=== PATIENT | female | born 1950 | race Caucasian/White ===

== ENCOUNTER → 2017-04-19 | Outpatient (CLI) | payer BC ==
--- NOTE | 2017-04-20 07:42 | MAMMOGRAPHY REPORT ---
THIS REPORT HAS BEEN AMENDED. BILATERAL DIGITAL SCREENING MAMMOGRAM WITH CAD: 04/19/2017 CLINICAL HISTORY: Routine screening. Patient has no complaints. TECHNIQUE: Bilateral CC and MLO views with an additional right XCCL were obtained. Current study was also evaluated with a Computer Aided Detection (CAD) system. COMPARISON: 05/20/2006 digitized mammogram. BREAST COMPOSITION: The tissue of both breasts is heterogeneously dense, which may obscure small mas ses. FINDINGS: The parenchymal pattern is similar to the prior available 05/20/2006 mammogram. No new amada picious mass, architectural distortion or cluster of suspicious microcalcifications is seen. There i s a benign rim calcification in the left upper outer quadrant. IMPRESSION: ACR BI-RADS CATEGORY 1: NEGATIVE There is no mammographic evidence of malignancy. A 1 year screening mammogram is recommended. The pa tient will receive written notification of the results. Approximately 10% of breast cancers are not detected with mammography. A negative mammographic report should not delay biopsy if a clinically suggestive mass is present. Kim Arias M.D. ay/:04/19/2017 16:50:49 Production Inspector: Laila Wang RT(R)(M)(BD), [facility] letter sent: Normal / BI-RADS Code: ACR BI-RADS Category 1: Negative AMENDMENT: 04/21/2017 Kim Arias M.D. Prior outside mammograms from [facility] dated 12/16/2013, 12/19/2014 became available fo r review. The parenchymal pattern is stable comparing to the prior outside mammograms. There are st able asymmetries in the superior right breast and a stable benign rim calcification in the lateral le ft breast. No new suspicious mass, area of architectural distortion or suspicious microcalcification s are seen. Recommend routine screening mammography in one year. Amended BI-RADS: ACR BI-RADS Category 2: Benign letter sent: Normal /2
== END | disposition home or self-care (01) ==
LOC: C.MAMM 15:28
PROVIDERS: ATTEND Family Medicine
DX: Z12.31 Encounter for screening mammogram for malignant neoplasm of breast (principal)

== ENCOUNTER 2017-06-14 22:32 | Emergency (ER) | payer BC, OTHER ==
[~2017-06-14] VITALS: Ht 160 cm; Wt 57.4 kg
[2017-06-14 22:36] VITALS: Ht 160 cm; Wt 57.4 kg
[2017-06-14 23:13] LABS: BASO % 0.1 %; BASO ABS # 0.01 K/uL (0-0.2); HEMATOCRIT 43.6 % (37-47); HEMOGLOBIN 15.3 g/dL (12.0-16.0); IG# 0.01 K/uL (0.00-0.02); LYMPH % 6.9 %; LYMPH ABS # 0.52 K/uL (1.2-3.4); MEAN CORPUSCULAR HEMOGLOBIN 32.3 pg (25-34); MEAN CORPUSCULAR HGB CONC 35.1 g/dl (32-36); MEAN PLATELET VOLUME 11.9 fL (7.4-10.4); MONO % 5.6 %; MONO ABS # 0.42 K/uL (0.11-0.59); NEUT % 87.3 %; NEUT ABS # 6.59 K/uL (1.4-6.5); PLATELET COUNT 115 K/uL (130-400); RED CELL DISTRIBUTION WIDTH CV 12.6 % (11.5-14.5); RED CELL DISTRIBUTION WIDTH SD 42.8 fL (36.4-46.3); WHITE BLOOD COUNT 7.55 K/uL (4.8-10.8)
[2017-06-14 23:23] VITALS: TEMP 37.5
[2017-06-14 23:26] LABS: ALBUMIN 3.8 gm/dl (3.4-5.0); CALCIUM 9.4 mg/dl (8.5-10.1); CREATININE 1.13 mg/dl (0.60-1.20); POTASSIUM 3.4 mmol/L (3.5-5.1)
[2017-06-14] MEDS ORDERED: LISI-729 PO (23:32)
[2017-06-14] MEDS ORDERED: ATOR10TA82 PO (23:32)
[2017-06-14] MEDS ORDERED: MULT-506 PO (23:33)
[2017-06-14] MEDS ORDERED: CHOL1000 PO (23:33)
[2017-06-14] MEDS ORDERED: CALC600T PO (23:33)
[2017-06-14 23:35] LABS: TOTAL PROTEIN 7.6 gm/dl (6.4-8.2)
[2017-06-15] LABS: INFLUENZA B ANTIGEN Neg for Influ B (NEG)
[2017-06-15 00:46] VITALS: BP 117/61; PULSE 95; O2SAT 98
--- NOTE | 2017-06-15 04:27 | EMERGENCY ROOM VISIT NOTE ---
History Report prepared by Jeannie: Angle Murdock Under the Supervision of: Dr. Yuliana Medeiros D.O. First contact with patient: 23:08 Chief Complaint: VOMITING Stated Complaint: VOMITING,ABD PAIN ALL DAY Nursing Triage Summary: Pt complains of abdominal pain, vomiting and diarrhea since this morning. History of Present Illness The patient is a 66 year old female who presents to the Emergency Room with complaints of worsening vomiting starting this morning. The patient states that she woke up and didn't feel well. She states that she decided not to go to a meeting because of it. The patient states that she last vomited a half hour prior to arrival. She notes that she is unsure if she has had a fever. The patient complains of diarrhea and abdominal pain. She currently rates her pain as an 8/10 in severity. The patient denies nausea, hematochezia, chest pain, shortness of breath, and hematemesis. The patient notes that her was sick with similar symptoms a week ago. She notes a history of an appendectomy, mitral valve prolapse, and a carotid artery cleaning. She states that she takes 5 mg of Lisinopril. Source of History: patient Onset: this morning Position: other (global) Symptom Intensity: 8/10 Timing: worsening Associated Symptoms: + abdominal pain, + diarrhea, No chest pain, No SOB, No nausea, No hematochezia Note: The patient denies hematemesis. Review of Systems See HPI for pertinent positives & negatives. A total of 10 systems reviewed and were otherwise negative. Past Medical & Surgical Medical Problems: (1) Mitral valve prolapse Surgical Problems: (1) H/O endarterectomy (2) History of appendectomy Family History Heart disease Hypertension Social History Smoking Status: Never Smoker Smokeless Tobacco Use: No Alcohol Use: none Marital Status: Housing Status: lives with significant other Occupation Status: employed Current/Historical Medications Scheduled Atorvastatin (Lipitor), 10 MG PO DAILY Calcium Carbonate (Calcium 600), 600 MG PO DAILY Cholecalciferol (Vitamin D3), 1 TAB PO DAILY Lisinopril (Prinivil), 5 MG PO DAILY Multivitamin (Multivitamin), 1 TAB PO DAILY Allergies Coded Allergies: No Known Allergies (Unverified , 06/14/17) Physical Exam Vital Signs Date Time Temp Pulse Resp B/P (MAP) Pulse Ox O2 Delivery O2 Flow Rate FiO2 06/15/17 00:46 95 18 117/61 98 Room Air 06/14/17 23:23 37.5 06/14/17 22:36 36.7 111 20 110/56 96 Physical Exam HEENT: Head - normocephalic and atraumatic Pupils are equal, round, and reactive to light. Extraocular eye muscles are intact, and sclera are anicteric. Nose - moist nasal mucosa without discharge. Mouth - moist buccal mucosa. Oropharynx is nonerythematous and there is no tonsillar exudate or edema noted. Neck: Supple; no JVD, nuchal rigidity, cervical lymphadenopathy. Heart: Regular rate and rhythm. There is a normal S1 and S2 with no murmurs, clicks, or gallops appreciated. Lungs: Clear to auscultation bilaterally with no wheezes, rales, or rhonchi. Abdomen: Soft, completely nontender, nondistended, with good bowel sounds. There are no palpable pulsatile masses or hepatosplenomegaly. There is no guarding, rigidity, or rebound noted. Extremities: No evidence of cyanosis, clubbing, or edema. There are easily palpable peripheral pulses. Skin: hot to the touch. Dry with good turgor and no rashes. Medical Decision & Procedures Laboratory Results 06/14/17 22:54 Red Blood Count 4.74, Mean Corpuscular Volume 92.0, Mean Corpuscular Hemoglobin 32.3, Mean Corpuscular Hemoglobin Concent 35.1, Mean Platelet Volume 11.9, Neutrophils (%) (Auto) 87.3, Lymphocytes (%) (Auto) 6.9, Monocytes (%) (Auto) 5.6, Eosinophils (%) (Auto) 0.0, Basophils (%) (Auto) 0.1, Neutrophils # (Auto) 6.59, Lymphocytes # (Auto) 0.52, Monocytes # (Auto) 0.42, Eosinophils # (Auto) 0.00, Basophils # (Auto) 0.01 06/14/17 22:54 Test 06/14/17 22:54 06/14/17 23:26 06/15/17 00:00 White Blood Count 7.55 K/uL (4.8-10.8) Red Blood Count 4.74 M/uL (4.2-5.4) Hemoglobin 15.3 g/dL (12.0-16.0) Hematocrit 43.6 % (37-47) Mean Corpuscular Volume 92.0 fL (80-100) Mean Corpuscular Hemoglobin 32.3 pg (25-34) Mean Corpuscular Hemoglobin Concent 35.1 g/dl (32-36) Platelet Count 115 K/uL (130-400) Mean Platelet Volume 11.9 fL (7.4-10.4) Neutrophils (%) (Auto) 87.3 % Lymphocytes (%) (Auto) 6.9 % Monocytes (%) (Auto) 5.6 % Eosinophils (%) (Auto) 0.0 % Basophils (%) (Auto) 0.1 % Neutrophils # (Auto) 6.59 K/uL (1.4-6.5) Lymphocytes # (Auto) 0.52 K/uL (1.2-3.4) Monocytes # (Auto) 0.42 K/uL (0.11-0.59) Eosinophils # (Auto) 0.00 K/uL (0-0.5) Basophils # (Auto) 0.01 K/uL (0-0.2) RDW Standard Deviation 42.8 fL (36.4-46.3) RDW Coefficient of Variation 12.6 % (11.5-14.5) Immature Granulocyte % (Auto) 0.1 % Immature Granulocyte # (Auto) 0.01 K/uL (0.00-0.02) Anion Gap 6.0 mmol/L (3-11) Est Creatinine Clear Calc Drug Dose 40.5 ml/min Estimated GFR () 58.7 Estimated GFR (Non- 50.6 BUN/Creatinine Ratio 16.2 (10-20) Calcium Level 9.4 mg/dl (8.5-10.1) Total Bilirubin 1.3 mg/dl (0.2-1) Aspartate Amino Transf (AST/SGOT) 24 U/L (15-37) Alanine Aminotransferase (ALT/SGPT) 23 U/L (12-78) Alkaline Phosphatase 121 U/L (45-117) Total Protein 7.6 gm/dl (6.4-8.2) Albumin 3.8 gm/dl (3.4-5.0) Globulin 3.8 gm/dl (2.5-4.0) Albumin/Globulin Ratio 1.0 (0.9-2) Lipase 124 U/L (73-393) Influenza Type A Antigen Neg for Influ A (NEG) Influenza Type B Antigen Neg for Influ B (NEG) Urine Color DK YELLOW Urine Appearance CLEAR (CLEAR) Urine pH 6.0 (4.5-7.5) Urine Specific [place] 1.024 (1.000-1.030) Urine Protein NEG (NEG) Urine Glucose (UA) NEG (NEG) Urine Ketones NEG (NEG) Urine Occult Blood NEG (NEG) Urine Nitrite NEG (NEG) Urine Bilirubin NEG (NEG) Urine Urobilinogen NEG (NEG) Urine Leukocyte Esterase TRACE (NEG) Urine WBC (Auto) 1-5 /hpf (0-5) Urine RBC (Auto) 5-10 /hpf (0-4) Urine Hyaline Casts (Auto) 1-5 /lpf (0-5) Urine Epithelial Cells (Auto) 10-20 /lpf (0-5) Urine Bacteria (Auto) NEG (NEG) Laboratory results per my review. Procedure IV normal saline ED Course 2313: Past medical records reviewed. The patient was evaluated in room C1B. A complete history and physical exam was performed. An IV lock was initiated and labs are drawn as above. She was given 1 L of normal saline solution wide open. She was no longer complaining of nausea. 0001: I went to reevaluate the patient, but she was in the restroom. 0024: I reevaluated the patient and she is feeling better. She is going to try to drink some Raven Goldie. 0104: Upon reevaluation, the patient is feeling better. She drank all her Raven Goldie fine. She is going to eat some saltines. I discussed findings and results with her. She verbalized agreement of the treatment plan. The patient was discharged home. Medical Decision 66 year old female with vomiting and diarrhea. Differential diagnoses include dehydration, influenza, viral illness, gastroenteritis, cardiac ischemia. LABS: White count 7.5 Stable H&H Potassium 3.4 Glucose 124 Normal renal function Normal lipase Total bilirubin 1.3 [place] 121 Otherwise LFTs look normal Urine: looks contaminated, but no infection Negative influenza This is a 66-year-old female patient who presents to the emergency department with nausea, vomiting and diarrhea. Symptom onset was earlier today. She began to feel weak as she was unable to keep anything down. Upon arrival here in the emergency department, she had no further episodes of vomiting or diarrhea. She was able to drink clear liquids after receiving IV normal saline solution. She was able eat saltines without any further vomiting. Patient was encouraged to rest and take plenty of clear liquids and a bland diet. She will take foods high in potassium as her potassium level slightly low. Medication Reconcilliation Current Medication List: was personally reviewed by me Blood Pressure Screening Patient's blood pressure: Normal blood pressure Blood pressure disposition: Did not require urgent referral Impression Primary Impression: Vomiting Additional Impressions: Diarrhea Hypokalemia Scribe Attestation The scribe's documentation has been prepared under my direction and personally reviewed by me in its entirety. I confirm that the note above accurately reflects all work, treatment, procedures, and medical decision making performed by me. Departure Information Dispostion Home / Self-Care Referrals John Andersen M.D. (PCP) Forms HOME CARE DOCUMENTATION FORM, IMPORTANT VISIT INFORMATION Patient Instructions My [facility] Additional Instructions Rest. Take a bland diet and plenty of clear liquids Follow up with PCP for recheck today if vomiting continues Take foods high in potassium Problem Qualifiers Primary Impression: Vomiting Vomiting type: unspecified Vomiting Intractability: non-intractable Nausea presence: with nausea Qualified Codes: R11.2 - Nausea with vomiting, unspecified Additional Impressions: Diarrhea Diarrhea type: unspecified type Qualified Codes: R19.7 - Diarrhea, unspecified
== END 2017-06-15 01:14 | disposition home or self-care (01) ==
LOC: C.EDB 22:33 → C.EDC 06-15 01:14
DX: R11.2 Nausea with vomiting, unspecified (principal); R19.7 Diarrhea, unspecified; E87.6 Hypokalemia; I34.1 Nonrheumatic mitral (valve) prolapse; Z90.89 Acquired absence of other organs; Z98.890 Other specified postprocedural states; Z82.49 Family history of ischemic heart disease and other diseases of the circulatory system

== ENCOUNTER 2017-08-22 14:51 | Emergency (ER) | payer OTHER ==
[~2017-08-22] VITALS: Ht 160 cm; Wt 58.3 kg
[2017-08-22 14:52] VITALS: TEMP 37; Ht 160 cm; Wt 58.3 kg
[2017-08-22] MEDS ORDERED: GUAI1TAB55 PO (15:31)
--- NOTE | 2017-08-22 15:33 | DIAGNOSTIC IMAGING REPORT ---
CHEST 2 VIEWS ROUTINE HISTORY: 67 years-old Female cough and congestion acute cough and congestion COMPARISON: Chest radiographs 11/30/1999 and TECHNIQUE: PA and lateral views of the chest FINDINGS: Azygos lobe and fissure into densely noted. Cardiomediastinal and hilar silhouettes are within normal limits. Atherosclerosis of the aorta. Lungs are hyperinflated and hyperlucent suggesting emphysema with mild biapical pleural-parenchymal scarring. There is no pneumothorax, pleural effusion, focal airspace consolidation or overt pulmonary edema. Levoscoliosis of the upper thoracic spine redemonstrated. Degenerative changes of the shoulders and spine noted. Surgical clips project over the lower neck. IMPRESSION: No acute process. The above report was generated using voice recognition software. It may contain grammatical, syntax or spelling errors. Electronically signed by: Jose Elias West M.D. 08/22/2017 3:32 PM Dictated Date/Time: 08/22/2017 3:29 PM
--- NOTE | 2017-08-22 15:39 | EMERGENCY ROOM VISIT NOTE ---
History First contact with patient: 15:00 Chief Complaint: THROAT PAIN/INJURY Stated Complaint: THROAT EAR PAIN History of Present Illness The patient is a 67 year old female who presents to the Emergency Room via private vehicle with complaints of "throat/ear pain" the patient states that 4- 5 days ago she began with sneezing, and nose drainage down into the throat. She now notes a sore throat as well as cough which began 3 days ago. It is not productive, rather just a dry cough. She notes that she generally is feeling ill. She denies any chest pain, shortness of breath or fevers. She thought that she be feeling better by this time and decided to be evaluated. She has tried a decongestant with minimal relief. She rates her overall discomfort as a 6/10 and notes that the sore throat is worse with talking. Review of Systems A complete 6-point Review of Systems was discussed with the patient, with pertinent positives and negatives listed in the History of Present Illness. All remaining Review of Systems questions can be considered negative unless otherwise specified. Past Medical/Surgical History Medical Problems: (1) Mitral valve prolapse Surgical Problems: (1) H/O endarterectomy (2) History of appendectomy Family History Heart disease Hypertension Social History Smoking Status: Never Smoker Alcohol Use: none Marital Status: Housing Status: lives with significant other Occupation Status: employed Current/Historical Medications Scheduled Atorvastatin (Lipitor), 10 MG PO DAILY Azithromycin (Zithromax), 250 MG PO DAILY Calcium Carbonate (Calcium 600), 600 MG PO DAILY Cholecalciferol (Vitamin D3), 1 TAB PO DAILY Lisinopril (Prinivil), 5 MG PO DAILY Multivitamin (Multivitamin), 1 TAB PO DAILY Scheduled PRN Benzonatate (Tessalon Perles), 100 MG PO Q8 PRN for Cough Guaifenesin Ext Rel (Mucinex Ext Rel), 600 MG PO Q12 PRN for CONGESTION Physical Exam Vital Signs Date Time Temp Pulse Resp B/P (MAP) Pulse Ox O2 Delivery O2 Flow Rate FiO2 08/22/17 16:11 76 18 132/77 96 08/22/17 14:52 37.0 84 18 138/49 97 Room Air Physical Exam VITAL SIGNS - Vital signs and nursing notes were reviewed. Stable. Afebrile. GENERAL -67-year-old female appearing her stated age who is in no acute distress. Communicates well with provider and answers questions appropriately. SKIN - Without rashes. No petechial or meningeal rash. HEAD - NC/AT. EYES - PERRL with EOMI bilaterally. Sclera anicteric. EARS - No deformities of external structures noted on gross examination bilaterally. Bilateral serous otitis media noted. There is yellowish fluid behind the TM without air bubbles. NOSE - Midline and without cyanosis. No epistaxis or purulent drainage noted. MOUTH/OROPHARYNX - Without perioral cyanosis. Buccal mucosa pink and moist and without leukoplakia. Tongue midline with equal elevation of palate bilaterally. No tonsillar hypertrophy, erythema, or exudates noted. Fair dentition noted. NECK - Neck with FROM. Supple to palpation. No lymphadenopathy noted. No nuchal rigidity. LUNGS - Chest wall symmetric without accessory muscle use, intercostals retractions, or central cyanosis. Normal vesicular breath sounds CTA B/L. No wheezes, rales, or rhonchi appreciated. CARDIAC - RRR with S1/S2. No murmur, rubs, or gallops appreciated. PSYCH - A&O, and cooperates fully with examiner. Pt is very pleasant and interacts well with examiner. Medical Decision & Procedures ER Provider Diagnostic Interpretation: CHEST 2 VIEWS ROUTINE HISTORY: 67 years-old Female cough and congestion acute cough and congestion COMPARISON: Chest radiographs 11/30/1999 and TECHNIQUE: PA and lateral views of the chest FINDINGS: Azygos lobe and fissure into densely noted. Cardiomediastinal and hilar silhouettes are within normal limits. Atherosclerosis of the aorta. Lungs are hyperinflated and hyperlucent suggesting emphysema with mild biapical pleural-parenchymal scarring. There is no pneumothorax, pleural effusion, focal airspace consolidation or overt pulmonary edema. Levoscoliosis of the upper thoracic spine redemonstrated. Degenerative changes of the shoulders and spine noted. Surgical clips project over the lower neck. IMPRESSION: No acute process. The above report was generated using voice recognition software. It may contain grammatical, syntax or spelling errors. Electronically signed by: Jose Elias West M.D. 08/22/2017 3:32 PM Dictated Date/Time: 08/22/2017 3:29 PM Medications Administered Medications (Trade) Dose Ordered Sig/Jimmy Route Start Time Stop Time Status Last Admin Dose Admin Azithromycin (Zithromax Tab) 500 mg NOW STAT PO 08/22/17 15:51 08/22/17 15:52 DC 08/22/17 16:07 500 MG Medical Decision Patient was seen and evaluated as above in room D6. She presents to us today with sore throat, nasal drainage, and dry nonproductive cough. There is no fever. No chest pain or shortness of breath. Review was performed of nursing notes and vital signs. After obtaining a thorough history and physical examination the above work up was performed. Chest x-ray negative for acute process. Results were reviewed with the patient. I discussed the case with the attending physician. We will treat her with azithromycin secondary to her presentation here for suspected sinusitis, and bronchitis. It is secondary to the duration of her symptoms that I believe warrant antibiotics. She was given the first dose here. She will also be given Tessalon Perles. She is to call her family doctor for recheck or return with worsening. The patient was educated upon management, had questions answered prior to discharge, and was discharged home in good condition. Case was discussed with the attending physician. In the evaluation and treatment of this patient the following differential diagnoses were entertained: Bronchitis, pharyngitis, pneumonia, among others. Impression Primary Impression: Cough Additional Impression: Acute serous otitis media, bilateral Departure Information Dispostion Home / Self-Care Condition GOOD Prescriptions Benzonatate (Tessalon Perles) 100 Mg Cap 100 MG PO Q8 Y for Cough for 5 Days, #15 CAP Prov: Jin Coles PA-C 08/22/17 Azithromycin (ZITHROMAX) 250 Mg Tab 250 MG PO DAILY, #4 TAB Prov: Jin Coles PA-C 08/22/17 Referrals John Andersen M.D. (PCP) Patient Instructions My [facility] Additional Instructions You were seen in the emergency department for your sore throat, cough and congestion. You were prescribed Azithromycin to be taken daily. Her first dose was given here. Next dose tomorrow at 4 PM.. This is an antibiotic. All antibiotics have the potential to cause diarrhea. Stop this medication and contact a medical provider if you were to develop any significant adverse side effects including: wheezing, shortness of breath, passing out, vomiting, or a diffuse rash. Always take antibiotics as directed and COMPLETE the ENTIRE course regardless of the improvement of your symptoms. Tessalon Perles : 100 every 8 hours as needed for cough as needed for cough ( maximum single dose: 200 mg; maximum dose: 600 mg/day) For pain and fever control, you can use the following [id number] medicines : - Regular strength (325mg/tab) Tylenol (acetaminophen) 2 tabs every 4-6 hours as needed. Do not exceed 12 tablets in a 24 hour period. Avoid taking more than 3 grams (3000 mg) of Tylenol per day. This includes any other sources of acetaminophen you may take on a regular basis. In addition to your prescribed medications, you can also use the following home remedies: - Warm salt-water gargles 3 times per day can soothe your throat and help to fight infection. - Warm tea with honey can soothe your throat. Return to the emergency department if your symptoms persist or worsen over the next 2-3 days despite treatment course outlined above. Return to the emergency department if you develop the following symptoms of: inability to swallow solids , liquids, or drool; excessive wheezing or inability to catch your breath; or intractable fever or pain. Follow up with your primary care provider in 2-3 days from today's emergency department visit. Problem Qualifiers
[2017-08-22] MEDS ORDERED: AZITHROMYCIN 250 MG TAB PO STA (15:51)
[2017-08-22] MEDS ORDERED: AZIT-60 PO (15:53)
[2017-08-22] MEDS ORDERED: BENZ100C84 PO (16:04)
[2017-08-22 16:11] VITALS: BP 132/77; PULSE 76; O2SAT 96
[2017-08-22] MEDS ORDERED: ATOR10TA82 PO (23:32)
[2017-08-22] MEDS ORDERED: LISI-729 PO (23:32)
[2017-08-22] MEDS ORDERED: CHOL1000 PO (23:33)
[2017-08-22] MEDS ORDERED: MULT-506 PO (23:33)
[2017-08-22] MEDS ORDERED: CALC600T PO (23:33)
== END 2017-08-22 16:10 | disposition home or self-care (01) ==
LOC: C.EDB 14:52 → C.EDD 16:10
DX: H65.03 Acute serous otitis media, bilateral (principal); R05 Cough; Z82.49 Family history of ischemic heart disease and other diseases of the circulatory system; Z79.899 Other long term (current) drug therapy